=== PATIENT | female | born 1990 | race Caucasian/White ===

== ENCOUNTER 2016-08-16 01:10 | Emergency (ER) | payer OTHER ==
[~2016-08-16] VITALS: Ht 167.6 cm; Wt 68.0 kg
[2016-08-16 01:25] VITALS: BP 124/60
[2016-08-16] MEDS ORDERED: IV NORMAL SALINE 1,000ML 1,000 ML ONE (01:55)
[2016-08-16] MEDS ORDERED: ONDANSETRON PF 4 MG/2 ML VIAL. ONE (01:55)
[2016-08-16] MEDS ORDERED: HYDROmorphone PF 1 MG/ML DISP.SYRIN ONE (01:55)
[2016-08-16] MEDS: IV NORMAL SALINE 1,000ML 1,000 ML IV SCH (02:00)
[2016-08-16] MEDS: ONDANSETRON PF 4 MG/2 ML VIAL. IV ONE (02:00)
[2016-08-16 02:02] LABS: BASO # 0.1 x10^3/uL (0.0-0.2); BASO % 1 % (0-3); EOS # 0.1 x10^3/uL (0.0-0.7); EOS % 2 % (0-3); HEMATOCRIT 34.4 % (36.0-47.0); HEMOGLOBIN 11.5 g/dL (12.0-15.5); LYMPH # 2.2 x10^3/uL (1.0-4.8); LYMPH % 33 % (24-48); MEAN CORPUSCULAR HEMOGLOBIN 29 pg (25-35); MEAN CORPUSCULAR HGB CONC 34 g/dL (31-37); MEAN CORPUSCULAR VOLUME 86 fL (79-100); MONO # 0.4 x10^3/uL (0.0-1.1); MONO % 6 % (0-9); NEUT # 3.8 x10^3uL (1.8-7.7); NEUT % 58 % (31-73); PLATELET COUNT 200 x10^3/uL (140-400); RED CELL DISTRIBUTION WIDTH 12.9 % (11.5-14.5); WHITE BLOOD COUNT 6.6 x10^3/uL (4.0-11.0)
[2016-08-16] MEDS: HYDROmorphone PF 1 MG/ML DISP.SYRIN IV/SQ PRN (02:08)
[2016-08-16] MEDS ORDERED: CONTRAST GIVEN MC PRN (02:15)
[2016-08-16 02:17] LABS: ALBUMIN 4.3 g/dL (3.4-5.0); ALBUMIN/GLOBULIN RATIO 1.3 (1.0-1.7); CALCIUM 9.2 mg/dL (8.5-10.1); CREATININE 0.7 mg/dL (0.6-1.0); GFR 102.8; POTASSIUM 3.7 mmol/L (3.5-5.1); TOTAL BILIRUBIN 0.2 mg/dL (0.2-1.0); TOTAL PROTEIN 7.6 g/dL (6.4-8.2)
[2016-08-16 02:34] LABS: BILIRUBIN,URINE NEG (NEG); CLARITY,URINE HAZY; COLOR,URINE STRAW; GLUCOSE,URINE NEG (NEG)
[2016-08-16 02:35] LABS: BACTERIA,URINE FEW /HPF (0-FEW); NITRITE,URINE NEG (NEG); SQUAMOUS EPITHELIAL CELL,UR MOD /LPF; UROBILINOGEN,URINE 0.2 mg/dL (0.2 mg/dL)
[2016-08-16 02:36] LABS: PREG TEST PT QUAL NEGATIVE (NEG)
[2016-08-16] MEDS: IOHEXOL 300 MG/ML 75 ML VIAL. IV ONE (02:39)
--- NOTE | 2016-08-16 02:41 | PHYS DOC ---
Adult General Chief Complaint Chief Complaint: ABDOMINAL PAIN HPI HPI Patient is a 25 year old female who presents with complaint of right lower quadrant abdominal pain. Patient's symptoms started approximately 1-1/2 hours prior to arrival. Patient states that she is having severe 10 out of 10 pain. Patient describes the pain as sharp and localized to her right lower quadrant. Patient denies radiation of pain. Patient denies history of similar symptoms. Patient has not taken any medications for her symptoms. Pain worsens with movement. Patient's last menstrual period was 2 days ago. Patient denies vaginal bleeding or vaginal discharge. Review of Systems Review of Systems Constitutional: Denies fever or chills [] Eyes: Denies change in visual acuity, redness, or eye pain [] HENT: Denies nasal congestion or sore throat [] Respiratory: Denies cough or shortness of breath [] Cardiovascular: Denies chest pain or edema [] GI: Abdominal pain, denies nausea, vomiting, bloody stools or diarrhea [] : Denies dysuria or hematuria [] Musculoskeletal: Denies back pain or joint pain [] Integument: Denies rash or skin lesions [] Neurologic: Denies headache, focal weakness or sensory changes [] Current Medications Current Medications Current Medications Medications (Trade) Dose Ordered Sig/Mannie Start Time Stop Time Status Last Admin Dose Admin Hydromorphone HCl (Dilaudid) 1 mg STK-MED ONCE 08/16/16 01:55 08/16/16 01:56 DC Info (Do NOT chart on this entry -- for MONITORING) 1 each PRN DAILY PRN 08/16/16 02:15 08/18/16 02:14 Iohexol (Omnipaque 300 Mg/ml) 75 ml 1X ONCE 08/16/16 02:30 08/16/16 02:31 DC Ondansetron HCl (Zofran) 4 mg STK-MED ONCE 08/16/16 01:55 08/16/16 01:56 DC Sodium Chloride 1,000 ml @ As Directed STK-MED ONCE 08/16/16 01:55 08/16/16 01:56 DC Allergies Allergies Allergies Coded Allergies Type Severity Reaction Last Updated Verified Sulfa (Sulfonamide Antibiotics) Allergy Intermediate 08/16/16 Yes Physical Exam Physical Exam Constitutional: Alert, afebrile, appears in severe discomfort. [] HENT: Normocephalic, atraumatic, bilateral external ears normal, oropharynx moist, no oral exudates, nose normal. [] Eyes: PERRLA, EOMI, conjunctiva normal, no discharge. [] Neck: Normal range of motion, no tenderness, supple, no stridor. [] Cardiovascular:Heart rate regular rhythm, no murmur [] Lungs & Thorax: Bilateral breath sounds clear to auscultation [] Abdomen: Bowel sounds normal, soft, right lower quadrant tenderness to palpation with guarding on exam, no masses, no pulsatile masses. Pelvic: Normal external exam, yellow purulent discharge in vaginal canal, cervical os closed, cervical motion tenderness present, midline and right adnexal tenderness on bimanual exam [] Skin: Warm, dry, no erythema, no rash. [] Back: No tenderness, no CVA tenderness. [] Extremities: No tenderness, no cyanosis, no clubbing, ROM intact, no edema. [] Neurologic: Alert and oriented X 3, normal motor function, normal sensory function, no focal deficits noted. [] Current Patient Data Lab Results Laboratory Tests Test 08/16/16 01:40 White Blood Count 6.6 x10^3/uL (4.0-11.0) Red Blood Count 4.00 x10^6/uL (3.50-5.40) Hemoglobin 11.5 g/dL (12.0-15.5) L Hematocrit 34.4 % (36.0-47.0) L Mean Corpuscular Volume 86 fL (79-100) Mean Corpuscular Hemoglobin 29 pg (25-35) Mean Corpuscular Hemoglobin Concent 34 g/dL (31-37) Red Cell Distribution Width 12.9 % (11.5-14.5) Platelet Count 200 x10^3/uL (140-400) Neutrophils (%) (Auto) 58 % (31-73) Lymphocytes (%) (Auto) 33 % (24-48) Monocytes (%) (Auto) 6 % (0-9) Eosinophils (%) (Auto) 2 % (0-3) Basophils (%) (Auto) 1 % (0-3) Neutrophils # (Auto) 3.8 x10^3uL (1.8-7.7) Lymphocytes # (Auto) 2.2 x10^3/uL (1.0-4.8) Monocytes # (Auto) 0.4 x10^3/uL (0.0-1.1) Eosinophils # (Auto) 0.1 x10^3/uL (0.0-0.7) Basophils # (Auto) 0.1 x10^3/uL (0.0-0.2) Sodium Level 140 mmol/L (136-145) Potassium Level 3.7 mmol/L (3.5-5.1) Chloride Level 106 mmol/L (98-107) Carbon Dioxide Level 25 mmol/L (21-32) Anion Gap 9 (6-14) Blood Urea Nitrogen 17 mg/dL (7-20) Creatinine 0.7 mg/dL (0.6-1.0) Estimated GFR (Cockcroft-Gault) 102.8 BUN/Creatinine Ratio 24 (6-20) H Glucose Level 100 mg/dL (70-99) H Calcium Level 9.2 mg/dL (8.5-10.1) Total Bilirubin 0.2 mg/dL (0.2-1.0) Aspartate Amino Transferase (AST) 12 U/L (15-37) L Alanine Aminotransferase (ALT) 14 U/L (14-59) Alkaline Phosphatase 80 U/L (46-116) Total Protein 7.6 g/dL (6.4-8.2) Albumin 4.3 g/dL (3.4-5.0) Albumin/Globulin Ratio 1.3 (1.0-1.7) Lipase 129 U/L (73-393) EKG EKG Not performed [] Radiology/Procedures Radiology/Procedures [address] [address] IMAGING REPORT Signed PATIENT: CORNELIUS GIL ACCOUNT: [id number] : 1990 LOCATION: ER AGE: 25 SEX: F EXAM STATUS: REG ER ORD. PHYSICIAN: EMELI NASSAR MD REASON: severe right lower abdominal pain, history of "ovarian pain" PROCEDURE: US PELVIS Examination: Ultrasound pelvis HISTORY: History of right lower quadrant pain COMPARISON: None available FINDINGS: The uterus measures 8.4 x 5.2 x 4.5 cm The endometrium is 4.7 mm in transverse dimension The right ovary measures 3.8 x 2.2 x 1.5 cm Blood flow identified in the right ovary. The left ovary measures 2.9 x 2.4 x 2.1 cm. Blood flow identified in the left ovary. Small amount of free fluid identified in the cul-de-sac. IMPRESSION: 1. Small amount of free fluid identified in the cul-de-sac, otherwise unremarkable exam. Electronically signed by: Marko Toro MD (08/16/2016 2:45 AM) DICTATED AND SIGNED BY: MARKO TORO MD DATE: 08/16/16242 CC: EMELI NASSAR MD; NITHYA ANTONIO MSN, [employer] [place] ~ [place] [address] IMAGING REPORT Signed PATIENT: CORNELIUS GIL ACCOUNT: [id number] : 1990 LOCATION: ER AGE: 25 SEX: F EXAM STATUS: REG ER ORD. PHYSICIAN: EMELI NASSAR MD REASON: right lower quadrant abdominal pain PROCEDURE: CT ABD PELV W/ IV CONTRST ONLY Examination: CT of the abdomen and pelvis with IV contrast HISTORY: History of right lower quadrant pain COMPARISON: None TECHNIQUE: Axial images of the abdomen is performed with IV contrast. Coronal and sagittal muscle. FINDINGS: Minimal bibasilar lung atelectasis. No evidence of free air identified in the abdomen. The visualized liver, spleen, adrenals grossly appears unremarkable. The gallbladder is mildly distended. The visualized pancreas grossly appears unremarkable. The visualized stomach is mildly distended. The small bowel is nondilated. Normal-appearing appendix opacities and gas noted throughout the colon. The bilateral kidneys enhance symmetrically. The caliber of the aorta is unremarkable. Urinary bladder is mildly distended. Small amount of flow fluid with minimal inflammatory fat stranding identified in the right adnexa. No evidence of any bony destructive lesion. IMPRESSION: 1. Small amount of fluid identified in the right adnexa with minimal inflammatory fat stranding, uncertain etiology. Other differential considerations include pelvic inflammatory disease, ruptured cyst. 2. Normal-appearing appendix. Electronically signed by: Marko Toro MD (08/16/2016 3:09 AM) DICTATED AND SIGNED BY: MARKO TORO MD DATE: 08/16/16 0300 CC: EMELI NASSAR MD; NITHYA ANTONIO MSN, ROOF PAINTER ~ [] Course & Med Decision Making Course & Med Decision Making Pertinent Labs and Imaging studies reviewed. (See chart for details) Patient was given IV fluids, Dilaudid, and Zofran. Patient was also given IV Toradol to assist with pain control. On reevaluation, patient's symptoms have improved. The patient's symptoms and findings are consistent with pelvic inflammatory disease. The patient was given IM Rocephin and oral azithromycin. Patient's wet prep also positive for bacterial vaginosis. Patient will be continued on Flagyl therapy for outpatient treatment. Advise follow-up with OB/ [facility] in 5 days if symptoms are not improving and return to emergency department for any worsening symptoms. Patient was understanding and in agreement with treatment plan. Dragon Disclaimer Dragon Disclaimer This chart was dictated in whole or in part using Voice Recognition software in a busy, high-work load, and often noisy Emergency Department environment. It may contain unintended and wholly unrecognized errors or omissions. Departure Departure: Impression: Primary Impression: Pelvic inflammatory disease (PID) Additional Impression: Bacterial vaginosis Disposition: 01 HOME, SELF-CARE Condition: IMPROVED Referrals: NITHYA ANTONIO MSN, [facility]OO[facility] PAINTER (PCP) Patient Instructions: Bacterial Vaginosis, Pelvic Inflammatory Disease Additional Instructions: Follow-up with [facility] in the next 5 days if symptoms are not improving. Return to the emergency department for any worsening symptoms. Scripts Hydrocodone Bit/Acetaminophen (NORCO 5-325 TABLET) 1 Each Tablet 1-2 TAB PO Q4-6HRS Y for PAIN, #20 TAB Prov: EMELI NASSAR MD 08/16/16 Ondansetron (ZOFRAN ODT) 4 Mg Tab.rapdis 1 TAB SL Q8HRS Y for NAUSEA/VOMITING, #15 TAB Prov: EMELI NASSAR MD 08/16/16 Ibuprofen (IBUPROFEN) 600 Mg Tablet 600 MG PO Q6HRS Y for PAIN, #30 TAB Prov: EMELI NASSAR MD 08/16/16 Metronidazole (FLAGYL) 500 Mg Tablet 1 TAB PO BID, #14 TAB Prov: EMELI NASSAR MD 08/16/16 Problem Qualifiers EMELI NASSAR MD Aug 16, 2016 02:41
--- NOTE | 2016-08-16 02:48 | RAD ---
Examination: Ultrasound pelvis HISTORY: History of right lower quadrant pain COMPARISON: None available FINDINGS: The uterus measures 8.4 x 5.2 x 4.5 cm The endometrium is 4.7 mm in transverse dimension The right ovary measures 3.8 x 2.2 x 1.5 cm Blood flow identified in the right ovary. The left ovary measures 2.9 x 2.4 x 2.1 cm. Blood flow identified in the left ovary. Small amount of free fluid identified in the cul-de-sac. IMPRESSION: 1. Small amount of free fluid identified in the cul-de-sac, otherwise unremarkable exam. Electronically signed by: Marko Toro MD (08/16/2016 2:45 AM)
--- NOTE | 2016-08-16 03:12 | RAD ---
Examination: CT of the abdomen and pelvis with IV contrast HISTORY: History of right lower quadrant pain COMPARISON: None TECHNIQUE: Axial images of the abdomen is performed with IV contrast. Coronal and sagittal muscle. FINDINGS: Minimal bibasilar lung atelectasis. No evidence of free air identified in the abdomen. The visualized liver, spleen, adrenals grossly appears unremarkable. The gallbladder is mildly distended. The visualized pancreas grossly appears unremarkable. The visualized stomach is mildly distended. The small bowel is nondilated. Normal-appearing appendix opacities and gas noted throughout the colon. The bilateral kidneys enhance symmetrically. The caliber of the aorta is unremarkable. Urinary bladder is mildly distended. Small amount of flow fluid with minimal inflammatory fat stranding identified in the right adnexa. No evidence of any bony destructive lesion. IMPRESSION: 1. Small amount of fluid identified in the right adnexa with minimal inflammatory fat stranding, uncertain etiology. Other differential considerations include pelvic inflammatory disease, ruptured cyst. 2. Normal-appearing appendix. Electronically signed by: Marko Toro MD (08/16/2016 3:09 AM)
[2016-08-16] MEDS: cefTRIAXone IM 250 MG VIAL IM ONE (03:53)
[2016-08-16] MEDS: AZITHROMYCIN 250 MG TABLET. PO ONE (03:54)
[2016-08-16] MEDS: KETOROLAC 30 MG/ML VIAL. IV ONE (03:54)
[2016-08-16] MEDS ORDERED: METR500T PO (04:09)
[2016-08-16] MEDS ORDERED: ONDA4TAB10 SL (04:11)
[2016-08-16] MEDS ORDERED: HYDR-971 PO (04:11)
[2016-08-16] MEDS ORDERED: IBUP600T16 PO (04:11)
[2016-08-18 19:11] LABS: CHLAMYDIA PROBE Negative (Negative)
== END 2016-08-16 04:42 | disposition home or self-care (01) ==
LOC: ER 01:10
DX: N73.9 Female pelvic inflammatory disease, unspecified (principal); N76.0 Acute vaginitis; B96.89 Other specified bacterial agents as the cause of diseases classified elsewhere; Z88.2 Allergy status to sulfonamides
CPT/HCPCS: 36415; 74177; 76856; 80053; 81001; 83690; 84703; 85027; 87086; 87491; 87591; 96361; 96372; 96374; 96375; 99285; J0456; J0696; J1170; J1885; J2405; Q0111; Q9967; J7030